=== PATIENT | female | born 1980 | race Caucasian/White ===

== ENCOUNTER 2017-01-03 19:50 | Emergency (ER) | payer MEDICAID ==
[~2017-01-03] VITALS: Ht 162.6 cm; Wt 83.5 kg
[2017-01-03 21:43] VITALS: BP 125/84
== END 2017-01-03 21:43 | disposition home or self-care (01) ==
LOC: ED 19:50
DX: G43.909 Migraine, unspecified, not intractable, without status migrainosus (principal)
CPT/HCPCS: J1885; Q0162

== ENCOUNTER 2017-04-12 10:57 | Emergency (ER) | payer MEDICAID ==
[~2017-04-12] VITALS: Ht 157.5 cm; Wt 81.6 kg
[2017-04-12 11:00] VITALS: Ht 157.5 cm; Wt 81.6 kg
[2017-04-12 13:02] LABS: microscopic required? NO
[2017-04-12 13:25] LABS: UA SPECIFIC GRAVITY <=1.005 (1.005-1.035); urine erythrocyte NEGATIVE (NEGATIVE)
[2017-04-12 13:32] LABS: BASOPHIL % 0.3 % (0-2); PLATELET COUNT 240 x10^3mcL (130-400); RED CELL DISTRIBUTION WIDTH 15.8 % (11.5-14.5)
[2017-04-12 14:57] VITALS: BP 101/62
== END 2017-04-12 14:57 | disposition home or self-care (01) ==
LOC: ED 10:57
PROVIDERS: Emergency Medicine
DX: B34.9 Viral infection, unspecified (principal); E86.0 Dehydration
CPT/HCPCS: 87804; J1885; J2405; J7030; Q0092